=== PATIENT | female | born 1955 | race Caucasian/White ===

== ENCOUNTER → 2017-09-19 | Outpatient (CLI) | payer BC | LOC: M WUC 11:45 | DX: R05 Cough (principal) | CPT/HCPCS: 71046 ==

== ENCOUNTER → 2018-03-23 | Outpatient (REF) | payer BC ==
[2018-03-23 12:09] LABS: APPEARANCE, URINE CLEAR (CLEAR); BACTERIA, URINE AUTO NEGATIVE (NEGATIVE); BILIRUBIN, URINE AUTO NEGATIVE (NEGATIVE); BLOOD, URINE BLOOD NEGATIVE (NEGATIVE); COLOR, URINE YELLOW (YELLOW); GLUCOSE, URINE (UA) AUTO NEGATIVE (NEGATIVE); KETONE, URINE AUTO NEGATIVE (NEGATIVE); LEUKOCYTE ESTERASE, URINE AUTO NEGATIVE (NEGATIVE); NITRITE, URINE AUTO NEGATIVE (NEGATIVE); PROTEIN, URINE AUTO NEGATIVE (NEGATIVE); RBC, URINE AUTO 1 /HPF (0-3); SPECIFIC GRAVITY URINE AUTO 1.017 (1.002-1.035); SQUAMOUS EPITHELIAL CELL UR AU 0 /HPF (0-6); UROBILINOGEN, URINE AUTO 0.2 mg/dL (0.0-2.0); WBC, URINE AUTO 0 /HPF (0-3)
[2018-03-23 12:29] LABS: ESTIMATED AVERAGE GLUCOSE 123 MG/DL (60-110); HEMOGLOBIN A1c 5.9 %; PTH INTACT 43.5 PG/ML (18.5-88.0)
[2018-03-23 12:50] LABS: ALBUMIN 3.9 GM/DL (3.2-5.2); ALBUMIN/GLOBULIN RATIO 1.15 (1.00-1.93); ALKALINE PHOSPHATASE 90 U/L (45-117); ALT/SGPT 27 U/L (12-78); ANION GAP 8 MEQ/L (8-16); AST/SGOT 13 U/L (7-37); BILIRUBIN,TOTAL 0.7 MG/DL (0.2-1.0); BLOOD UREA NITROGEN 15 MG/DL (7-18); CALCIUM LEVEL 9.4 MG/DL (8.8-10.2); CARBON DIOXIDE LEVEL 28 MEQ/L (21-32); CHLORIDE LEVEL 109 MEQ/L (98-107); CREATININE FOR GFR 0.61 MG/DL (0.55-1.30); GLOMERULAR FILTRATION RATE > 60.0 (>45); GLUCOSE, FASTING 92 MG/DL (70-100); POTASSIUM SERUM 4.6 MEQ/L (3.5-5.1); SODIUM LEVEL 145 MEQ/L (136-145); TOTAL PROTEIN 7.3 GM/DL (6.4-8.2)
[2018-03-23 13:24] LABS: CREATININE, URINE 89.8 MG/DL; MALB URINE SIEMENS 5.1 MG/L; MAU/CREAT RATIO 5.6 MCG/MG (0.0-30.0)
== END ==
LOC: M SFHCPLAZ 08:13
DX: E55.9 Vitamin D deficiency, unspecified (principal); R73.01 Impaired fasting glucose
CPT/HCPCS: 80053

== ENCOUNTER → 2018-07-11 | Outpatient (CLI) | payer BC | LOC: M WHC 14:19 | DX: Z12.31 Encounter for screening mammogram for malignant neoplasm of breast (principal); Z78.0 Asymptomatic menopausal state | CPT/HCPCS: 77067 ==

== ENCOUNTER → 2018-09-06 | Outpatient (CLI) | payer BC ==
[~2018-09-06] MED LIST: /ESOM40CA PO; /FENO14TA PO; ACET50TA PO; FLEX10TA2 PO; IBUP600T26 PO; MOTR100T2 PO; SOMA350T PO; TRAM37.5 PO; ZOCO20TA PO
[2018-09-06 07:08] LABS: HEMOGLOBIN A1c 5.8 %
[2018-09-06 07:17] LABS: CHOLESTEROL RISK RATIO 2.696 (<5)
[2018-09-06 09:51] LABS: PTH INTACT 29.6 PG/ML (18.5-88.0); TOTAL 25(OH) VITAMIN D 66.5 NG/ML (30.0-100.0)
== END ==
LOC: M LAB 06:13
PROVIDERS: ATTEND Physician Assistant Medical
DX: E78.5 Hyperlipidemia, unspecified (principal); R73.01 Impaired fasting glucose; E55.9 Vitamin D deficiency, unspecified

== ENCOUNTER 2018-10-11 07:22 | Day surgery (SDC) | payer BC ==
[~2018-10-11] VITALS: Ht 152.4 cm; Wt 81.2 kg
[~2018-10-11 07:22] MED LIST changes: +ASPI1TAB PO; +CALTTAB6 PO; +NEXI40CA PO; +NS 1,000 ML IV ONE; +PHEN37.5 PO; +SIMV20TA2 PO; +TRIC145T22 PO; +VITA50005 PO
[2018-10-11] MEDS ORDERED: PROPOFOL 200 MG/20 ML VIAL As Ordered ONE (07:44)
[2018-10-11] MEDS ORDERED: LIDOCAINE 2% INJ 100 MG/5 ML SDV (FOR ANES.) As Ordered ONE (07:44)
--- NOTE | 2018-10-11 09:09 | ROOR ---
Patient Name: Юлия Grayson Procedure Date: 10/11/2018 8:38 AM Date of : 1955 Age: 63 Room: [facility] Gender: Female Note Status: Finalized Procedure: Colonoscopy Indications: Screening for colorectal malignant neoplasm Providers: DO Raji Ladd MD: Nagi Hill MD Requesting Provider: Medicines: Propofol per Anesthesia Complications: No immediate complications. Procedure: Pre-Anesthesia Assessment: - Prior to the procedure, a History and Physical was performed, and patient medications and allergies were reviewed. The patient is competent. The risks and benefits of the procedure and the sedation options and risks were discussed with the patient. All questions were answered and informed consent was obtained. Patient identification and proposed procedure were verified by the physician, the nurse, the anesthesiologist and the automotive technician instructor in the endoscopy suite. Mental Status Examination: alert and oriented. Airway Examination: normal oropharyngeal airway and neck mobility. Respiratory Examination: clear to auscultation. CV Examination: normal. Prophylactic Antibiotics: The patient does not require prophylactic antibiotics. Prior Anticoagulants: The patient has taken no previous anticoagulant or antiplatelet agents. ASA Grade Assessment: II - A patient with mild systemic disease. After reviewing the risks and benefits, the patient was deemed in satisfactory condition to undergo the procedure. The anesthesia plan was to use monitored anesthesia care (MAC). Immediately prior to administration of medications, the patient was re-assessed for adequacy to receive sedatives. The heart rate, respiratory rate, oxygen saturations, blood pressure, adequacy of pulmonary ventilation, and response to care were monitored throughout the procedure. The physical status of the patient was re-assessed after the procedure. The Colonoscope was introduced through the anus and advanced to the cecum, identified by appendiceal orifice and ileocecal valve. The colonoscopy was performed without difficulty. The patient tolerated the procedure well. Findings: The perianal exam findings include non-thrombosed internal hemorrhoids and internal hemorrhoids (Grade I). A few small-mouthed diverticula were found in the sigmoid colon. The exam was otherwise without abnormality on direct and retroflexion views. Impression: - Non-thrombosed internal hemorrhoids and internal hemorrhoids (Grade I) found on perianal exam. - Diverticulosis in the sigmoid colon. - The examination was otherwise normal on direct and retroflexion views. - No specimens collected. Recommendation: - Patient has a contact number available for emergencies. The signs and symptoms of potential delayed complications were discussed with the patient. Return to normal activities tomorrow. Written discharge instructions were provided to the patient. - Repeat colonoscopy in 10 years for screening purposes. - Return to my office PRN. Can Encarnacion DO 10/11/2018 9:09:29 AM This report has been signed electronically. Number of Addenda: 0 Note Initiated On: 10/11/2018 8:38 AM Estimated Blood Loss: Estimated blood loss: none.
[2018-10-11 09:34] VITALS: BP 141/80
== END 2018-10-11 09:35 | disposition home or self-care (01) ==
LOC: M OPP 07:22
PROVIDERS: ATTEND Surgery
DX: K64.0 First degree hemorrhoids (principal); K57.30 Diverticulosis of large intestine without perforation or abscess without bleeding; Z12.11 Encounter for screening for malignant neoplasm of colon

== ENCOUNTER → 2019-08-13 | Outpatient (REF) | payer BC, MEDICARE ==
[~2019-08-13] MED LIST changes: -/ESOM40CA PO; -/FENO14TA PO; -ACET50TA PO; -ASPI1TAB PO; +ASPI81TA26 PO; +MAPA500T17 PO; +NEXI1CAP3 PO; -NS 1,000 ML IV ONE; -SIMV20TA2 PO; +SIMV20TA22 PO; +TRIC145T19 PO
== END ==
LOC: M LAB REF 16:19
PROVIDERS: ATTEND Nurse Practitioner Family
DX: R30.0 Dysuria (principal)

== ENCOUNTER → 2019-08-18 | Outpatient (REF) | payer MEDICARE | LOC: M WUC 13:36 | PROVIDERS: ATTEND Physician Assistant | DX: N39.0 Urinary tract infection, site not specified (principal) ==

== ENCOUNTER → 2019-08-24 | Outpatient (REF) | payer MEDICARE ==
[2019-08-24 11:46] LABS: BASO # 0.1 10^3/uL (0.0-0.2); BASO % 0.9 % (0.0-1.0); EOS % 0.6 % (0.0-3.0); HEMATOCRIT 41.2 % (36.0-47.0); HEMOGLOBIN 13.5 g/dl (12.0-15.5); LYMPH # 3.1 10^3/uL (1.5-5.0); LYMPH % 44.9 % (24.0-44.0); MEAN CORPUSCULAR HGB CONC 32.8 g/dl (32.0-36.5); MEAN CORPUSCULAR VOLUME 94.5 fl (80.0-96.0); MONO # 0.5 10^3/uL (0.0-0.8); MONO % 7.1 % (0.0-5.0); NEUTROPHILS # 3.2 10^3/uL (1.5-8.5); NEUTROPHILS % 46.2 % (36.0-66.0); PLATELET COUNT, AUTOMATED 283 10^3/uL (150-450); RED BLOOD COUNT 4.36 10^6/uL (4.00-5.40); WHITE BLOOD COUNT 6.8 10^3/uL (4.0-10.0)
[2019-08-24 12:06] LABS: ALBUMIN 3.9 GM/DL (3.2-5.2); ALT/SGPT 28 U/L (12-78); BILIRUBIN,TOTAL 0.9 MG/DL (0.2-1.0); BLOOD UREA NITROGEN 14 MG/DL (7-18); CALCIUM LEVEL 9.4 MG/DL (8.8-10.2); CARBON DIOXIDE LEVEL 27 MEQ/L (21-32); CHLORIDE LEVEL 108 MEQ/L (98-107); CHOLESTEROL LEVEL 204 MG/DL (<200); CHOLESTEROL RISK RATIO 3.344 (<5); CPK CREATINE PHOSPHOKINASE 60 U/L (26-192); CREATININE FOR GFR 0.65 MG/DL (0.55-1.30); FREE T4 0.83 NG/DL (0.76-1.46); GLOMERULAR FILTRATION RATE > 60.0 (>45); GLUCOSE, FASTING 93 MG/DL (70-100); HDL CHOLESTEROL 61 MG/DL (>40); LDL CHOLESTEROL 119 MG/DL (<100); NON-HDL-C 143 MG/DL; POTASSIUM SERUM 4.2 MEQ/L (3.5-5.1); PTH INTACT 37.1 PG/ML (18.5-88.0); SODIUM LEVEL 142 MEQ/L (136-145); TOTAL 25(OH) VITAMIN D 49.6 NG/ML (30.0-100.0); TRIGLYCERIDES LEVEL 122 MG/DL (<150)
[2019-08-24 12:54] LABS: HEMOGLOBIN A1c 5.9 %
== END ==
LOC: M SFHCPLAZ 09:42
PROVIDERS: ATTEND Family Medicine
DX: E78.5 Hyperlipidemia, unspecified (principal); R73.01 Impaired fasting glucose; E55.9 Vitamin D deficiency, unspecified
CPT/HCPCS: 36415; 80053; 80061; 82306; 82550; 83036; 83525; 83970; 84439; 84443; 85025; 90670; G0009; G0463

== ENCOUNTER → 2019-09-18 | Outpatient (CLI) | payer MEDICARE ==
--- NOTE | 2019-09-18 09:18 | REP ---
BILATERAL SCREENING DIGITAL MAMMOGRAM WITH 3D TOMOSYNTHESIS: There are no palpable abnormalities or other breast complaints. The the patient states she has not had a clinical breast examination in over a year. The the patient states she performs self-breast examinations 12 times per year The Tyrer-Cuzick Score is: 8.4% . Comparison is 06/20/2015. There are scattered areas of fibroglandular density. There is no dominant mass, micro calcific cluster or architectural distortion that would indicate malignancy. There are benign calcifications. There are no additional findings on 3D tomosynthesiss. There is no change from the prior study. Impression: BIRADS/ACR category II mammogram. Benign findings. Recommendation: Routine annual screening mammography. This mammogram was interpreted with the aid of a FDA approved computer-aided detection system. A. Negative mammogram reports should not delay biopsy if a dominant or clinically suspicious mass is present. B. Not all breast cancers are identified by mammography or tomosynthesis. C. Adenosis and dense breasts may obscure an underlying neoplasm. Patient letter M1. Electronically Signed by Can Morrison MD 09/18/2019 09:09 A
== END ==
LOC: M WHC 08:00
PROVIDERS: ATTEND Family Medicine
DX: Z12.31 Encounter for screening mammogram for malignant neoplasm of breast (principal)

== ENCOUNTER → 2020-06-11 | Outpatient (REF) | payer MEDICARE ==
[2020-06-11 11:21] LABS: ALBUMIN 3.8 GM/DL (3.2-5.2); ALT/SGPT 27 U/L (12-78); BASO # 0.1 10^3/uL (0.0-0.2); BASO % 1.1 % (0.0-1.0); BILIRUBIN,TOTAL 0.5 MG/DL (0.2-1.0); BLOOD UREA NITROGEN 12 MG/DL (7-18); CALCIUM LEVEL 9.6 MG/DL (8.8-10.2); CARBON DIOXIDE LEVEL 25 MEQ/L (21-32); CHLORIDE LEVEL 111 MEQ/L (98-107); CHOLESTEROL LEVEL 215 MG/DL (<200); CHOLESTEROL RISK RATIO 3.307 (<5); CREATININE FOR GFR 0.56 MG/DL (0.55-1.30); EOS % 0.5 % (0.0-3.0); GLOMERULAR FILTRATION RATE > 60.0 (>45); GLUCOSE, FASTING 95 MG/DL (70-100); HDL CHOLESTEROL 65 MG/DL (>40); HEMATOCRIT 42.1 % (36.0-47.0); HEMOGLOBIN 13.8 g/dl (12.0-15.5); LDL CHOLESTEROL 124 MG/DL (<100); LYMPH # 2.6 10^3/uL (1.5-5.0); LYMPH % 48.2 % (24.0-44.0); MEAN CORPUSCULAR HEMOGLOBIN 31.2 pg (27.0-33.0); MEAN CORPUSCULAR HGB CONC 32.8 g/dl (32.0-36.5); MEAN CORPUSCULAR VOLUME 95.2 fl (80.0-96.0); MONO # 0.4 10^3/uL (0.0-0.8); MONO % 7.1 % (0.0-5.0); NEUTROPHILS # 2.3 10^3/uL (1.5-8.5); NEUTROPHILS % 42.7 % (36.0-66.0); NON-HDL-C 150 MG/DL; PLATELET COUNT, AUTOMATED 310 10^3/uL (150-450); POTASSIUM SERUM 4.3 MEQ/L (3.5-5.1); RED BLOOD COUNT 4.42 10^6/uL (4.00-5.40); SODIUM LEVEL 140 MEQ/L (136-145); TOTAL PROTEIN 6.9 GM/DL (6.4-8.2); TRIGLYCERIDES LEVEL 130 MG/DL (<150); VITAMIN B12 LEVEL 506 PG/ML (247-911); WHITE BLOOD COUNT 5.5 10^3/uL (4.0-10.0)
[2020-06-11 11:33] LABS: APPEARANCE, URINE CLEAR (CLEAR); BACTERIA, URINE AUTO NEGATIVE (NEGATIVE); BILIRUBIN, URINE AUTO NEGATIVE (NEGATIVE); BLOOD, URINE BLOOD NEGATIVE (NEGATIVE); COLOR, URINE STRAW (YELLOW); GLUCOSE, URINE (UA) AUTO NEGATIVE (NEGATIVE); KETONE, URINE AUTO NEGATIVE (NEGATIVE); LEUKOCYTE ESTERASE, URINE AUTO TRACE (NEGATIVE); NITRITE, URINE AUTO NEGATIVE (NEGATIVE); PROTEIN, URINE AUTO NEGATIVE (NEGATIVE); RBC, URINE AUTO 0 /HPF (0-3); SPECIFIC GRAVITY URINE AUTO 1.011 (1.002-1.035); SQUAMOUS EPITHELIAL CELL UR AU 1 /HPF (0-6); UROBILINOGEN, URINE AUTO 0.2 mg/dL (0.0-2.0); WBC, URINE AUTO 1 /HPF (0-3)
[2020-06-11 12:02] LABS: CREATININE, URINE 43.2 MG/DL; MALB URINE SIEMENS < 5.0 MG/L; MAU/CREAT RATIO 11.5 MCG/MG (0.0-30.0)
[2020-06-12 09:43] LABS: ALBUMIN 4.44 GM/DL (3.29-5.55); ALBUMIN % 64.3 % (55.8-66.1); ALPHA-1-GLOBULIN % 3.6 % (2.9-4.9); ALPHA-1-GLOBULINS 0.25 GM/DL (0.17-0.41); ALPHA-2-GLOBULINS 0.63 GM/DL (0.42-0.99); ALPHA-2-GLOBULINS % 9.1 % (7.1-11.8); BETA-1-GLOBULINS 0.42 GM/DL (0.28-0.60); BETA-1-GLOBULINS % 6.1 % (4.7-7.2); BETA-2-GLOBULINS % 4.4 % (3.2-6.5); GAMMA GLOBULIN % 12.5 % (11.1-18.8); GAMMA GLOBULINS 0.86 GM/DL (0.65-1.58)
== END ==
LOC: M PLALAB 08:13
PROVIDERS: ATTEND Family Medicine
DX: D75.89 Other specified diseases of blood and blood-forming organs (principal); E78.5 Hyperlipidemia, unspecified; R73.01 Impaired fasting glucose

== ENCOUNTER → 2020-07-28 | Outpatient (CLI) | payer SELFPAY | LOC: M LABSMTC 13:07 | PROVIDERS: ATTEND Pediatrics | DX: Z20.828 Contact with and (suspected) exposure to other viral communicable diseases (principal) ==

== ENCOUNTER → 2020-11-05 | Outpatient (REF) | payer MEDICARE ==
[2020-11-05 11:52] LABS: HEMOGLOBIN A1c 5.4 %
[2020-11-05 12:16] LABS: C REACTIVE PROTEIN QUANTITATIV < 0.30 MG/DL (0.00-0.30); CHOLESTEROL LEVEL 241 MG/DL (<200); CHOLESTEROL RISK RATIO 3.129 (<5); CPK CREATINE PHOSPHOKINASE 51 U/L (26-192); HDL CHOLESTEROL 77 MG/DL (>40); LDL CHOLESTEROL 129 MG/DL (<100); NON-HDL-C 164 MG/DL; PTH INTACT 51.2 PG/ML (18.5-88.0); TOTAL 25(OH) VITAMIN D 47.3 NG/ML (30.0-100.0); TRIGLYCERIDES LEVEL 175 MG/DL (<150)
== END ==
LOC: M PLALAB 08:15
PROVIDERS: ATTEND Family Medicine
DX: E78.5 Hyperlipidemia, unspecified (principal); R73.01 Impaired fasting glucose; E55.9 Vitamin D deficiency, unspecified; Z79.899 Other long term (current) drug therapy

== ENCOUNTER → 2020-11-26 | Outpatient (CLI) | payer MEDICARE ==
--- NOTE | 2020-11-26 10:27 | REPMRS ---
Patient History The patient states she has not had a clinical breast exam in over a year. Family history of colorectal cancer at age 50 or over in maternal uncle, prostate cancer at age 50 or over in paternal uncle. Took hormonal contraceptives for 20 years. Took estrogen for 4 years. Took progesterone for 4 years. 3D TOMOSYNTHESIS WAS PERFORMED. The [facility] lifetime risk for breast cancer is 8.0%. Volpara breast density b. Digital Woman Screen Mammo: November 26, 2020 - Exam #: [id number] Bilateral CC and MLO view(s) were taken. Technologist: Denise Kumar, Technologist Prior study comparison: September 18, 2019, bilateral digital woman screen mammo performed at [facility]. July 11, 2018, bilateral digital woman screen mammo performed at [facility]. FINDINGS: The breast tissue is heterogeneously dense. This may lower the sensitivity of mammography. There has been no change in the appearance of the mammogram from the prior studies. There is a moderate amount of residual fibroglandular tissue which is fairly symmetric. There is no interval development of dominant mass, areas of architectural distortion, or clustered microcalcification typical of malignancy. Assessment: BI-RADS/ACR category 1 mammogram. Negative Mammogram. Recommendation Routine screening mammogram in 1 year (for women over age 40). This mammogram was interpreted with the aid of an FDA-approved computer-aided dectection system. Electronically Signed By: Can Bentley MD 11/26/20 [id number]
== END ==
LOC: M WHC 09:26
PROVIDERS: ATTEND Family Medicine
DX: Z12.31 Encounter for screening mammogram for malignant neoplasm of breast (principal); Z92.0 Personal history of contraception

== ENCOUNTER → 2021-10-14 | Outpatient (REF) | LOC: M LABSMTC 09:57 | PROVIDERS: ATTEND Pediatrics | DX: Z11.52 Encounter for screening for COVID-19 (principal) ==

== ENCOUNTER → 2022-02-09 | Outpatient (CLI) | payer MEDICARE ==
[2022-02-09 10:53] LABS: BASO % 0.6 % (0.0-1.0); EOS % 0.6 % (0.0-3.0); HEMATOCRIT 43.4 % (36.0-47.0); HEMOGLOBIN 14.4 g/dl (12.0-15.5); LYMPH # 2.4 10^3/uL (1.5-5.0); MEAN CORPUSCULAR HEMOGLOBIN 31.9 pg (27.0-33.0); MEAN CORPUSCULAR HGB CONC 33.2 g/dl (32.0-36.5); MEAN CORPUSCULAR VOLUME 96.2 fl (80.0-96.0); MONO # 0.4 10^3/uL (0.0-0.8); MONO % 7.6 % (2.0-8.0); NEUTROPHILS # 2.6 10^3/uL (1.5-8.5); PLATELET COUNT, AUTOMATED 272 10^3/uL (150-450); RED BLOOD COUNT 4.51 10^6/uL (4.00-5.40); WHITE BLOOD COUNT 5.4 10^3/uL (4.0-10.0)
[2022-02-09 11:16] LABS: ALBUMIN 3.9 GM/DL (3.2-5.2); ALT/SGPT 20 U/L (12-78); BILIRUBIN,TOTAL 0.9 MG/DL (0.2-1.0); BLOOD UREA NITROGEN 9 MG/DL (7-18); CALCIUM LEVEL 9.9 MG/DL (8.8-10.2); CARBON DIOXIDE LEVEL 28 MEQ/L (21-32); CHLORIDE LEVEL 108 MEQ/L (98-107); CHOLESTEROL LEVEL 317 MG/DL (<200); CHOLESTEROL RISK RATIO 4.953 (<5); CREATININE FOR GFR 0.56 MG/DL (0.55-1.30); FERRITIN 152 NG/ML (8-252); GLOMERULAR FILTRATION RATE > 60.0 (>45); GLUCOSE, FASTING 88 MG/DL (70-100); HDL CHOLESTEROL 64 MG/DL (>40); LDL CHOLESTEROL 206 MG/DL (<100); NON-HDL-C 253 MG/DL; POTASSIUM SERUM 4.5 MEQ/L (3.5-5.1); SODIUM LEVEL 142 MEQ/L (136-145); TOTAL PROTEIN 7.4 GM/DL (6.4-8.2); TRIGLYCERIDES LEVEL 237 MG/DL (<150)
[2022-02-09 11:24] LABS: VITAMIN B12 LEVEL 401 PG/ML (247-911)
[2022-02-10 05:07] LABS: APOLIPOPROTEIN B/A-1 RATIO 0.8 ratio (0.0-0.6)
== END ==
LOC: M PLALAB 09:04
PROVIDERS: ATTEND Family Medicine
DX: D75.89 Other specified diseases of blood and blood-forming organs (principal); E78.5 Hyperlipidemia, unspecified

== ENCOUNTER 2022-09-23 21:27 | Emergency (ER) | payer MEDICARE ==
[~2022-09-23] VITALS: Ht 152.4 cm; Wt 72.7 kg
[2022-09-23 21:54] LABS: BASO # 0.1 10^3/uL (0.0-0.2); BASO % 0.7 % (0.0-1.0); EOS % 0.4 % (0.0-3.0); HEMATOCRIT 40.2 % (36.0-47.0); HEMOGLOBIN 13.6 g/dl (12.0-15.5); LYMPH # 3.6 10^3/uL (1.5-5.0); LYMPH % 50.5 % (24.0-44.0); MEAN CORPUSCULAR HEMOGLOBIN 32.1 pg (27.0-33.0); MEAN CORPUSCULAR HGB CONC 33.8 g/dl (32.0-36.5); MEAN CORPUSCULAR VOLUME 94.8 fl (80.0-96.0); MONO # 0.4 10^3/uL (0.0-0.8); MONO % 5.9 % (2.0-8.0); NEUTROPHILS % 42.2 % (36.0-66.0); PLATELET COUNT, AUTOMATED 274 10^3/uL (150-450); RED BLOOD COUNT 4.24 10^6/uL (4.00-5.40); WHITE BLOOD COUNT 7.2 10^3/uL (4.0-10.0)
[2022-09-23 22:04] LABS: INR 0.92; PROTHROMBIN TIME 12.6 SECONDS (12.5-14.5)
[2022-09-23 22:05] LABS: PARTIAL THROMBOPLASTIN TIME 26.4 SECONDS (24.8-34.2)
[2022-09-23] MEDS ORDERED: EZET10TA21 (22:07)
[2022-09-23] MEDS ORDERED: ROSU40TA4 (22:07)
[2022-09-23 22:38] LABS: LIPASE 49 U/L (12-53)
[2022-09-23 22:41] LABS: ALBUMIN 3.9 G/DL (3.2-5.2); ALKALINE PHOSPHATASE 69 U/L (46-116); ALT/SGPT 17 U/L (7.0-40); AST/SGOT 17 U/L (<34); BILIRUBIN,DIRECT < 0.1 MG/DL (<0.4); BILIRUBIN,TOTAL 0.5 MG/DL (0.3-1.2); BLOOD UREA NITROGEN 11 MG/DL (9-23); CALCIUM LEVEL 9.6 MG/DL (8.3-10.6); CARBON DIOXIDE LEVEL 25 MMOL/L (20-31); CHLORIDE LEVEL 107 MMOL/L (98-107); CPK CREATINE PHOSPHOKINASE 62 U/L (34-145); CREATININE FOR GFR 0.54 MG/DL (0.55-1.30); GLOMERULAR FILTRATION RATE > 60.0 (>45); GLUCOSE, FASTING 115 MG/DL (74-106); POTASSIUM SERUM 3.4 MMOL/L (3.5-5.1); SODIUM LEVEL 143 MMOL/L (136-145); TOTAL PROTEIN 7.1 G/DL (5.7-8.2)
[2022-09-23 22:50] LABS: CK-MB VALUE MASS < 1.0 NG/ML (<3.6); MB/CK RELATIVE INDEX 1.61 (< OR =4); THYROID STIMULATING HORMONE 3.618 uIU/ML (0.55-4.78)
[2022-09-23] MEDS ORDERED: ACETAMINOPHEN TAB 650MG DOSE (2X325MG) PO ONE (23:05)
[2022-09-23] MEDS ORDERED: ISOVUE-370 76% 100ML VIAL As Ordered ONE (23:17)
[2022-09-23] MEDS ORDERED: CARA1TAB6 PO (23:59)
[2022-09-24 00:06] VITALS: BP 155/69
== END 2022-09-24 00:22 | disposition home or self-care (01) ==
LOC: M ED 21:27
DX: R07.89 Other chest pain (principal); R94.31 Abnormal electrocardiogram [ECG] [EKG]; J98.11 Atelectasis; K44.9 Diaphragmatic hernia without obstruction or gangrene; I10 Essential (primary) hypertension; E78.5 Hyperlipidemia, unspecified; K21.9 Gastro-esophageal reflux disease without esophagitis; R91.8 Other nonspecific abnormal finding of lung field; G43.909 Migraine, unspecified, not intractable, without status migrainosus; Z90.89 Acquired absence of other organs; Z90.49 Acquired absence of other specified parts of digestive tract; Z90.710 Acquired absence of both cervix and uterus; Z79.82 Long term (current) use of aspirin; Z79.899 Other long term (current) drug therapy
CPT/HCPCS: 36415; 71275; 80048; 80076; 82550; 82553; 83690; 84443; 84484; 85025; 85610; 85730; 93005; 99284; Q9967

== ENCOUNTER → 2022-09-27 | Outpatient (CLI) | payer MEDICARE ==
[~2022-09-27] MED LIST changes: +CARA1TAB6 PO; +EZET10TA21; +ROSU40TA4
[2022-09-27 18:03] LABS: C REACTIVE PROTEIN QUANTITATIV < 0.40 MG/DL (<1.0)
[2022-09-27 18:05] LABS: ALBUMIN 4.2 G/DL (3.2-5.2); ALKALINE PHOSPHATASE 71 U/L (46-116); ALT/SGPT 14 U/L (7.0-40); AST/SGOT 21 U/L (<34); BLOOD UREA NITROGEN 16 MG/DL (9-23); CALCIUM LEVEL 9.3 MG/DL (8.3-10.6); CARBON DIOXIDE LEVEL 29 MMOL/L (20-31); CHLORIDE LEVEL 106 MMOL/L (98-107); GLOMERULAR FILTRATION RATE > 60.0 (>45); GLUCOSE, FASTING 89 MG/DL (74-106); POTASSIUM SERUM 3.9 MMOL/L (3.5-5.1); SODIUM LEVEL 142 MMOL/L (136-145); TOTAL PROTEIN 7.3 G/DL (5.7-8.2)
[2022-09-29 21:09] LABS: ANA (HEP2) Negative (.); CYCLIC CITRULLINATED PEPTIDE < 1 units (0-19)
== END ==
LOC: M PLALAB 16:44
PROVIDERS: ATTEND Physician Assistant
DX: M25.531 Pain in right wrist (principal); M25.532 Pain in left wrist; R10.13 Epigastric pain

== ENCOUNTER → 2022-11-10 | Outpatient (CLI) | payer MEDICARE | LOC: M CARPUL 14:10 | PROVIDERS: ATTEND Family Medicine | DX: I77.810 Thoracic aortic ectasia (principal) ==

== ENCOUNTER → 2023-02-17 | Outpatient (CLI) | payer MEDICARE | LOC: M WHC 09:24 | PROVIDERS: ATTEND Family Medicine | DX: Z12.31 Encounter for screening mammogram for malignant neoplasm of breast (principal); M85.80 Other specified disorders of bone density and structure, unspecified site; Z78.0 Asymptomatic menopausal state ==

== ENCOUNTER → 2023-02-21 | Outpatient (REF) | payer MEDICARE | LOC: M SFHCPLAZ 19:19 | PROVIDERS: ATTEND Family Medicine | DX: R73.01 Impaired fasting glucose (principal); E55.9 Vitamin D deficiency, unspecified; D75.89 Other specified diseases of blood and blood-forming organs; I10 Essential (primary) hypertension; E78.5 Hyperlipidemia, unspecified ==

== ENCOUNTER → 2023-03-01 | Outpatient (CLI) | payer MEDICARE | LOC: M SOG 07:55 | PROVIDERS: ATTEND Physician Assistant | DX: M25.531 Pain in right wrist (principal); M25.532 Pain in left wrist ==

== ENCOUNTER 2023-03-11 08:42 | Day surgery (SDC) | payer MEDICARE ==
[~2023-03-11] VITALS: Ht 154.9 cm; Wt 74.4 kg
[~2023-03-11 08:42] MED LIST changes: +LIDOCAINE W/EPINEPHRINE 1% 20ML VIAL XX ONE; +SODIUM BICARBONATE 8.4% INJ 50MEQ 50ML VIAL XX ONE
[2023-03-11] MEDS ORDERED: BACITRACIN OINTMENT 30GM TUBE As Ordered ONE (12:23)
[2023-03-11 13:20] VITALS: BP 156/68; TEMP 97.8; O2SAT 96
== END 2023-03-11 13:49 | disposition home or self-care (01) ==
LOC: M SDC 08:42
PROVIDERS: ATTEND Orthopaedic Surgery Hand Surgery
DX: M65.4 Radial styloid tenosynovitis [de Quervain] (principal)

== ENCOUNTER → 2023-08-30 | Outpatient (CLI) | payer MEDICARE ==
[~2023-08-30] MED LIST changes: -LIDOCAINE W/EPINEPHRINE 1% 20ML VIAL XX ONE; -SODIUM BICARBONATE 8.4% INJ 50MEQ 50ML VIAL XX ONE
[2023-08-30 08:36] LABS: BASO # 0.1 10^3/uL (0.0-0.2); BASO % 0.8 % (0.0-1.0); EOS % 0.5 % (0.0-3.0); HEMOGLOBIN 14.2 g/dl (12.0-15.5); LYMPH # 2.7 10^3/uL (1.5-5.0); LYMPH % 41.3 % (24.0-44.0); MEAN CORPUSCULAR HEMOGLOBIN 31.6 pg (27.0-33.0); MEAN CORPUSCULAR HGB CONC 33.8 g/dl (32.0-36.5); MEAN CORPUSCULAR VOLUME 93.3 fl (80.0-96.0); MONO # 0.5 10^3/uL (0.0-0.8); MONO % 7.5 % (2.0-8.0); NEUTROPHILS # 3.2 10^3/uL (1.5-8.5); NEUTROPHILS % 49.6 % (36.0-66.0); PLATELET COUNT, AUTOMATED 253 10^3/uL (150-450); WHITE BLOOD COUNT 6.5 10^3/uL (4.0-10.0)
[2023-08-30 09:01] LABS: ALBUMIN 4.1 G/DL (3.2-5.2); ALKALINE PHOSPHATASE 68 U/L (46-116); ALT/SGPT 27 U/L (7.0-40); AST/SGOT 18 U/L (<34); BILIRUBIN,TOTAL 1.2 MG/DL (0.3-1.2); BLOOD UREA NITROGEN 16 MG/DL (9-23); CALCIUM LEVEL 9.5 MG/DL (8.3-10.6); CARBON DIOXIDE LEVEL 27 MMOL/L (20-31); CHLORIDE LEVEL 109 MMOL/L (98-107); CHOLESTEROL LEVEL 158 MG/DL (<200); GLOMERULAR FILTRATION RATE > 60.0 (>45); GLUCOSE, FASTING 97 MG/DL (74-106); HDL CHOLESTEROL 74.9 MG/DL (>40); LDL CHOLESTEROL 58.5 MG/DL (<100); NON-HDL-C 83.1 MG/DL; POTASSIUM SERUM 4.2 MMOL/L (3.5-5.1); PTH INTACT 55.8 PG/ML (18.5-88.0); SODIUM LEVEL 142 MMOL/L (136-145); TOTAL PROTEIN 6.7 G/DL (5.7-8.2); TRIGLYCERIDES LEVEL 123 MG/DL (<150)
[2023-08-30 09:03] LABS: TOTAL 25(OH) VITAMIN D 67.5 NG/ML (20.0-100.0); VITAMIN B12 LEVEL 623 PG/ML (211-911)
== END ==
LOC: M LAB 07:58
PROVIDERS: ATTEND Family Medicine
DX: R73.01 Impaired fasting glucose (principal); E78.00 Pure hypercholesterolemia, unspecified

== ENCOUNTER → 2023-12-16 | Outpatient (REF) | payer MEDICARE | LOC: M LAB REF 16:17 | PROVIDERS: ATTEND Physician Assistant | DX: R30.0 Dysuria (principal) ==

== ENCOUNTER → 2023-12-22 | Outpatient (REF) | payer MEDICARE ==
[~2023-12-22] MED LIST changes: -ROSU40TA4; +ROSU40TA63
[2023-12-23 14:27] LABS: CREATININE, URINE 37.1 MG/DL
[2023-12-23 14:28] LABS: MALB URINE SIEMENS < 3.0 MG/L
== END ==
LOC: M SFHCPLAZ 13:35
PROVIDERS: ATTEND Family Medicine
DX: R73.01 Impaired fasting glucose (principal); E78.5 Hyperlipidemia, unspecified; I10 Essential (primary) hypertension

== ENCOUNTER 2024-02-01 09:54 | Day surgery (SDC) | payer MEDICARE ==
[~2024-02-01] VITALS: Ht 152.4 cm; Wt 78.5 kg
[~2024-02-01 09:54] MED LIST changes: +ERGO500029 PO; -EZET10TA21; +EZET10TA21 PO; +FLUO-365 PO; +PHEN37.58 PO; +PHENYLEPHRINE 10% OPHTH SOL 5ML OS PRN; -ROSU40TA63; +ROSU40TA63 PO
[2024-02-01] MEDS: ATROPINE SULFATE 1% OPHTH SOLN 2ML BTL OS SCH (10:22)
[2024-02-01] MEDS: OFLOXACIN 0.3 % (OCUFLOX) OPTH SOL 5ML OS ONE (10:22)
[2024-02-01] MEDS: LIDOCAINE 3.5 % 1ML OPHTH TOPICAL GEL OU ONE (10:22)
[2024-02-01] MEDS: PHENYLEPHRINE 2.5% OPHTH SOL 2ML OS SCH (10:23)
[2024-02-01] MEDS: TROPICAMIDE 1% OPHTH SOLN 15ML OS SCH (10:23)
[2024-02-01] MEDS ORDERED: MIDAZOLAM INJ 2MG/2ML VIAL As Ordered ONE (10:40)
[2024-02-01] MEDS ORDERED: fentaNYL 100 MCG/2 ML INJECTION As Ordered ONE (10:40)
[2024-02-01] MEDS: LIDOCAINE 1% SDV 5ML VIAL As Ordered ONE (10:41)
[2024-02-01] MEDS: BSS IRRIG/VANCO(10MG)/TOBRA(5MG)/EPINEPH(1:1000-0.5CC)500ML BAG-ORONLY As Ordered ONE (10:41)
[2024-02-01] MEDS: CEFUROXIME 1MG/0.1ML INTRACAMERAL INJ As Ordered ONE (10:42)
[2024-02-01 10:54] VITALS: BP 137/65; TEMP 98.2; O2SAT 95
== END 2024-02-01 11:36 | disposition home or self-care (01) ==
LOC: M SDC 09:54
PROVIDERS: ATTEND Ophthalmology
DX: H25.12 Age-related nuclear cataract, left eye (principal); Z79.899 Other long term (current) drug therapy
CPT/HCPCS: 66984; 92015; J0697; J2250; J3010; V2788

== ENCOUNTER → 2024-04-03 | Outpatient (CLI) | payer MEDICARE ==
[~2024-04-03] MED LIST changes: -PHENYLEPHRINE 10% OPHTH SOL 5ML OS PRN
[2024-04-03 10:57] LABS: FREE T4 1.05 NG/DL (0.89-1.76); THYROID STIMULATING HORMONE 3.2 uIU/ML (0.55-4.78)
[2024-04-03 10:58] LABS: FREE T3 3.3 PG/ML (2.3-4.2)
[2024-04-04 14:57] LABS: ANTI-U1 RNP AB <1.0 NEG AI (<1.0 NEG); RNP ANTIBODY <1.0 NEG AI (<1.0 NEG); SM ANTIBODY <1.0 NEG AI (<1.0 NEG); SSA SJOGRENS A <1.0 NEG AI (<1.0 NEG); SSB SJOGRENS B <1.0 NEG AI (<1.0 NEG)
[2024-04-05 14:57] LABS: ANA PATTERN Nuclear, Homogeneous (NEGATIVE); ANA PATTERN 2 Cytoplasmic; ANA SCREEN, IFA POSITIVE (NEGATIVE); ANA TITER 1:40 titer (<1:40); ANA TITER 2 1:40 titer (NEGATIVE)
[2024-04-11 11:41] LABS: ANTI DS-DNA AB NEGATIVE (NEGATIVE)
[2024-04-12 09:26] LABS: DRVV SCREEN 31.3 SECONDS
[2024-04-12 09:43] LABS: PTT LUPUS TYPE ANTICOAG SCREEN 0.8 (0-1.20)
== END ==
LOC: M PLALAB 07:41
PROVIDERS: ATTEND Ophthalmology
DX: H16.223 Keratoconjunctivitis sicca, not specified as Sjogren's, bilateral (principal); R73.01 Impaired fasting glucose; I10 Essential (primary) hypertension; E78.5 Hyperlipidemia, unspecified

== ENCOUNTER → 2024-04-03 | Outpatient (CLI) | payer MEDICARE ==
[2024-04-03 10:25] LABS: BASO # 0.1 10^3/uL (0.0-0.2); BASO % 0.8 % (0.0-1.0); EOS % 0.3 % (0.0-3.0); HEMATOCRIT 42.8 % (36.0-47.0); HEMOGLOBIN 14.5 g/dl (12.0-15.5); LYMPH # 2.9 10^3/uL (1.5-5.0); LYMPH % 44.7 % (24.0-44.0); MEAN CORPUSCULAR HEMOGLOBIN 31.7 pg (27.0-33.0); MEAN CORPUSCULAR HGB CONC 33.9 g/dl (32.0-36.5); MEAN CORPUSCULAR VOLUME 93.7 fl (80.0-96.0); MONO # 0.4 10^3/uL (0.0-0.8); MONO % 6.3 % (2.0-8.0); NEUTROPHILS # 3.1 10^3/uL (1.5-8.5); NEUTROPHILS % 47.7 % (36.0-66.0); PLATELET COUNT, AUTOMATED 236 10^3/uL (150-450); RED BLOOD COUNT 4.57 10^6/uL (4.00-5.40); WHITE BLOOD COUNT 6.4 10^3/uL (4.0-10.0)
[2024-04-03 10:48] LABS: ALBUMIN 4.2 G/DL (3.2-5.2); ALKALINE PHOSPHATASE 74 U/L (46-116); ALT/SGPT 34 U/L (7.0-40); AST/SGOT 26 U/L (<34); BILIRUBIN,TOTAL 1.1 MG/DL (0.3-1.2); BLOOD UREA NITROGEN 9 MG/DL (9-23); CALCIUM LEVEL 9.6 MG/DL (8.3-10.6); CARBON DIOXIDE LEVEL 27 MMOL/L (20-31); CHLORIDE LEVEL 110 MMOL/L (98-107); CHOLESTEROL LEVEL 159 MG/DL (<200); CHOLESTEROL RISK RATIO 2.03 (<5); GLOMERULAR FILTRATION RATE > 60.0 (>45); GLUCOSE, FASTING 93 MG/DL (74-106); HDL CHOLESTEROL 78.1 MG/DL (>40); LDL CHOLESTEROL 61.9 MG/DL (<100); NON-HDL-C 80.9 MG/DL; POTASSIUM SERUM 4.4 MMOL/L (3.5-5.1); SODIUM LEVEL 145 MMOL/L (136-145); TRIGLYCERIDES LEVEL 95 MG/DL (<150)
[2024-04-03 11:06] LABS: HEMOGLOBIN A1c 5.6 % (4.0-6.0)
[2024-04-03 12:04] LABS: CREATININE, URINE 19.4 MG/DL; MALB URINE SIEMENS < 3.0 MG/L; MAU/CREAT RATIO 15.4 MCG/MG (0.0-30.0)
== END ==
LOC: M PLALAB 07:39
PROVIDERS: ATTEND Family Medicine
DX: R73.01 Impaired fasting glucose (principal); I10 Essential (primary) hypertension; E78.5 Hyperlipidemia, unspecified

== ENCOUNTER → 2024-04-06 | Outpatient (CLI) | payer MEDICARE | LOC: M WHC 07:21 | PROVIDERS: ATTEND Family Medicine | DX: Z12.31 Encounter for screening mammogram for malignant neoplasm of breast (principal); R92.323 Mammographic fibroglandular density, bilateral breasts ==

== ENCOUNTER → 2024-12-17 | Outpatient (CLI) | payer MEDICARE ==
[~2024-12-17] MED LIST changes: -ROSU40TA63 PO; +ROSU40TA81 PO
[2024-12-17 13:56] LABS: BASO % 0.6 % (0.0-1.0); EOS % 0.6 % (0.0-3.0); HEMOGLOBIN 14.6 g/dl (12.0-15.5); LYMPH % 44.7 % (24.0-44.0); MEAN CORPUSCULAR HEMOGLOBIN 31.7 pg (27.0-33.0); MEAN CORPUSCULAR HGB CONC 33.2 g/dl (32.0-36.5); MEAN CORPUSCULAR VOLUME 95.7 fl (80.0-96.0); MONO # 0.5 10^3/uL (0.0-0.8); MONO % 7.4 % (2.0-8.0); NEUTROPHILS # 3.1 10^3/uL (1.5-8.5); NEUTROPHILS % 46.6 % (36.0-66.0); PLATELET COUNT, AUTOMATED 232 10^3/uL (150-450); WHITE BLOOD COUNT 6.8 10^3/uL (4.0-10.0)
[2024-12-17 14:06] LABS: ALBUMIN 4.3 G/DL (3.2-5.2); ALKALINE PHOSPHATASE 65 U/L (35-104); ALT/SGPT 35 U/L (7.0-40); AST/SGOT 26 U/L (<34); BILIRUBIN,TOTAL 1.3 MG/DL (0.3-1.2); BLOOD UREA NITROGEN 10 MG/DL (9-23); CALCIUM LEVEL 10.4 MG/DL (8.3-10.6); CARBON DIOXIDE LEVEL 30 MMOL/L (20-31); CHLORIDE LEVEL 105 MMOL/L (98-107); CREATININE FOR GFR 0.54 MG/DL (0.55-1.30); GLOMERULAR FILTRATION RATE > 90.0 (>39); GLUCOSE, FASTING 92 MG/DL (74-106); POTASSIUM SERUM 4.2 MMOL/L (3.5-5.1); SODIUM LEVEL 143 MMOL/L (136-145); TOTAL PROTEIN 7.2 G/DL (5.7-8.2)
[2024-12-17 14:10] LABS: HEMOGLOBIN A1c 5.4 % (4.0-6.0)
== END ==
LOC: M PLALAB 10:53
PROVIDERS: ATTEND Family Medicine
DX: I10 Essential (primary) hypertension (principal); R73.01 Impaired fasting glucose; E55.9 Vitamin D deficiency, unspecified; D75.89 Other specified diseases of blood and blood-forming organs

== ENCOUNTER → 2025-04-15 | Outpatient (CLI) | payer MEDICARE | LOC: M PLAIMG 07:25 | PROVIDERS: ATTEND Family Medicine | DX: I34.0 Nonrheumatic mitral (valve) insufficiency (principal) ==

== ENCOUNTER → 2025-05-27 | Outpatient (CLI) | payer MEDICARE ==
[~2025-05-27] MED LIST changes: -EZET10TA21 PO; +EZET10TA57 PO
== END ==
LOC: M WHC 08:27
PROVIDERS: ATTEND Family Medicine
DX: Z12.39 Encounter for other screening for malignant neoplasm of breast (principal)

== ENCOUNTER → 2025-06-05 | Outpatient (CLI) | payer MEDICARE | LOC: M WHC 07:01 | PROVIDERS: ATTEND Family Medicine | DX: Z12.31 Encounter for screening mammogram for malignant neoplasm of breast (principal); R92.333 Mammographic heterogeneous density, bilateral breasts ==